=== PATIENT | female | born 1995 | race Caucasian/White ===

== ENCOUNTER → 2017-02-04 | Outpatient (CLI) | payer OTHER | END | disposition home or self-care (01) | LOC: C.LABSPEC 17:09 | PROVIDERS: ATTEND Urology | DX: N20.0 Calculus of kidney (principal) ==

== ENCOUNTER 2017-02-24 17:43 | Observation (INO) | payer OTHER ==
[2017-02-23 00:40] VITALS: BP_SYST 68; BP_SYST 84; BP_DIAS 37; BP_DIAS 53
[2017-02-23 01:15] VITALS: BP 96/51; PULSE 69
[2017-02-23 01:30] VITALS: BP 92/60
[2017-02-24] VITALS (7 sets, daily range): BP systolic 73–101; BP diastolic 36–61; PULSE 65–99; TEMP 36.7–37.7; O2SAT 97–99; Ht 165.1 cm; Wt 52.2 kg
[~2017-02-24] VITALS: Ht 165.1 cm; Wt 52.2 kg
[2017-02-24] MEDS ORDERED: ACET-1256 PO (18:04)
[2017-02-24] MEDS ORDERED: PHEN95TA10 PO (18:04)
--- NOTE | 2017-02-24 18:10 | HISTORY & PHYSICAL EXAMINATION ---
DATE OF ADMISSION: 02/24/2017 CHIEF COMPLAINT: Fever and chills, swelling right labia, and right labial pain. HISTORY OF PRESENT ILLNESS: The patient is a 22-year-old nullip is on no form of control. Last menstrual period was 02/20/2017. She says painful swelling of the right labia associated with fever and chills. This has been getting progressively worse. She was unable to sleep all the night before being seen and she states at the present time, it is getting worse by the hour. Examination revealed an infected right-sided Bartholin cyst. She is presently being scheduled for a drainage, marsupialization, and packing of a right-sided Bartholin cyst. ALLERGIES: SHE IS ALLERGIC TO AMOXICILLIN AND SYNTHETIC PENICILLIN FROM WHICH SHE GETS A RASH. PAST SURGICAL HISTORY: She has had no previous surgery. SOCIAL HISTORY: No smoking. No excessive alcohol intake. She is a [employer] student. PAST MEDICAL HISTORY: She has medical history of Crohn's disease. FAMILY HISTORY: Mom is 56 in good health. Father 55 in good health. She has 1 sister, 23 who has had an eating disorder. REVIEW OF SYSTEMS: She has had fever and chills, last 48 hours and swelling and pain of the right labia. PHYSICAL EXAMINATION: GENERAL: Well-developed, well-nourished 22-year-old white female, alert, oriented x3 and cooperative in no acute distress, appears stated age. EYES: Conjunctivae are pink, sclerae white, no evidence of jaundice. EARS: Had normal light reflex bilaterally. NOSE: Had normal mucosa. Septum is midline. There were no polyps. THROAT: No erythema or evidence of infection. Teeth are in good state of repair. HEAD: Normocephalic, normal distribution of hair. NECK: Supple. Trachea midline. Thyroid is not enlarged. There is no adenopathy appreciated. Both carotids are of good intensity. CHEST: Clear to auscultation and percussion. No wheezes, rales or rhonchi appreciated. HEART: Had regular rhythm. S1, S2 were normal. PELVIC: Revealed painful swelling of the right labia with fluctuant area. MUSCULOSKELETAL: Revealed no calf tenderness. IMPRESSIONS OF THIS CASE: Symptomatic right-sided Bartholin's infection.
[2017-02-24] MEDS ORDERED: CLINDAMYCIN IV 900 MG in DEXTROSE 5% 100ML 100 ML IV SCH (18:45)
[2017-02-24] MEDS ORDERED: MIDAZOLAM HCL 1 MG/ML 2ML VIAL ONE ×2 (18:59→19:11)
[2017-02-24] MEDS ORDERED: CLINDAMYCIN PHOS 150 MG/ML 2 ML VIAL ONE (19:23)
[2017-02-24] MEDS ORDERED: HYDROmorphone INJ 1 MG/ML SYR IV PRN (19:45)
[2017-02-24] MEDS ORDERED: NALOXONE HCL 0.4 MG/1 ML VIAL/CARP IV PRN (19:45)
[2017-02-24] MEDS ORDERED: EpHEDrine SULFATE INJ 50 MG/ML AMP IV PRN (19:45)
[2017-02-24] MEDS ORDERED: ATROPINE SULFATE 0.1 MG/ML 5ML SYR IV PRN (19:45)
[2017-02-24] MEDS ORDERED: FLUMAZENIL 0.1 MG/1 ML 10 ML VIAL IV PRN (19:45)
[2017-02-24] MEDS ORDERED: ONDANSETRON INJ 2 MG/ML 2 ML VIAL IV PRN ×2 (19:45→20:15)
--- NOTE | 2017-02-24 20:08 | [facility] Post Operative Brief Note ---
Immediate Operative Summary Operative Date Feb 24, 2017. Pre-Operative Diagnosis Right symptomatic Bartholian cyst Post-Operative Diagnosis Right symptomatic Bartholian cyst Procedure(s) Performed marsupialization with packing right bartolins cyst Surgeon Dr. Colón Surveillance Sensor Operator Surgeon(s) none Estimated Blood Loss 10 ml Findings infected right bartholin cyst Specimens Culture 1. Right Symptomatic Bartholian Cyst-For aerobic and anerobic culture per Dr. Colón Anesthesia saddle block Complication(s) None Disposition Recovery Room / PACU
[2017-02-24] MEDS ORDERED: KETOROLAC TROMETHAMINE 30 MG/ML VIAL IV. PRN (20:15)
[2017-02-24] MEDS ORDERED: IBUPROFEN 600 MG TAB PO PRN (20:15)
[2017-02-24] MEDS ORDERED: OXYCODONE/ACETAMINOPHEN 5-325 TAB PO PRN ×2 (20:15)
[2017-02-24] MEDS ORDERED: HYDROCODONE/ACETAMOPHEN 5/325MG TAB PO PRN ×4 (20:15)
--- NOTE | 2017-02-24 20:18 | Anesthesiology Progress Note ---
Anesthesia Post Op Note Date & Time Feb 24, 2017 at 20:18 Vital Signs Pain Intensity: 0 Vital Signs Past 12 Hours Date Time Temp Pulse Resp B/P (MAP) Pulse Ox O2 Delivery O2 Flow Rate FiO2 02/24/17 20:15 89 20 101/66 100 Room Air 02/24/17 20:05 88 20 102/81 100 Room Air 02/24/17 19:59 37.2 88 20 105/63 100 Room Air 02/24/17 18:05 37.7 99 18 97/61 (73) 98 Room Air Notes Mental Status: alert / awake / arousable, participated in evaluation Pt Amnestic to Procedure: Yes Nausea / Vomiting: adequately controlled Pain: adequately controlled Airway Patency, RR, SpO2: stable & adequate BP & HR: stable & adequate Hydration State: stable & adequate Neuraxial Anesthesia: was administered, sensory block is resolving Anesthetic Complications: no major complications apparent
[2017-02-24] MEDS: SODIUM CHLORIDE 0.9% 1000ML 1,000 ML IV SCH (21:35)
[2017-02-25] MEDS: SODIUM CHLORIDE 0.9% 1000ML 1,000 ML IV SCH ×2 (00:57→04:04)
[2017-02-25] MEDS ORDERED: SODIUM CHLORIDE 0.9% 500ML 500 ML IV STA ×2 (01:39→01:43)
[2017-02-25] MEDS ORDERED: NURSING VERBAL MED ORDER ONE ×3 (01:40→13:30)
[2017-02-25] MEDS: CLINDAMYCIN IV 600 MG in DEXTROSE 5% 50ML 50 ML IV SCH ×2 (04:04→11:27)
[2017-02-25 04:10] VITALS: BP 87/56; PULSE 76; TEMP 36.6; O2SAT 100
[2017-02-25] MEDS: IV FLUIDS COMPLETED PRN ×3 (04:18→12:15)
[2017-02-25 09:00] VITALS: BP 101/65; PULSE 66; TEMP 36.6; O2SAT 98
--- NOTE | 2017-02-25 09:20 | Anesthesiology Progress Note ---
Anesthesia Post Op Note Date & Time Feb 25, 2017 at 09:19 Vital Signs Pain Intensity: 0.0 Vital Signs Past 12 Hours Date Time Temp Pulse Resp B/P (MAP) Pulse Ox O2 Delivery O2 Flow Rate FiO2 02/25/17 05:05 Room Air 02/25/17 04:10 36.6 76 16 87/56 (66) 100 Room Air 02/24/17 23:40 83/53 (63) 02/24/17 23:30 36.7 65 16 73/36 (48) 99 Room Air 77/45 (56) 02/24/17 23:30 Room Air 02/24/17 22:38 37.0 75 18 89/53 (65) 98 Room Air 02/24/17 21:40 37.3 93 18 99/60 (73) 99 Room Air Notes Mental Status: alert / awake / arousable, participated in evaluation Pt Amnestic to Procedure: Yes Nausea / Vomiting: adequately controlled Pain: adequately controlled Airway Patency, RR, SpO2: stable & adequate BP & HR: stable & adequate Hydration State: stable & adequate Neuraxial Anesthesia: was administered, sensory block resolved Anesthetic Complications: no major complications apparent
--- NOTE | 2017-02-25 09:55 | Progress Note ---
Subjective Feb 25, 2017. Subjective conversation w/ patient Ambulation: ambulating normally Voiding: no voiding problems Passing Gas: Yes Diet Tolerance: Regular Diet Lochia: Small Review of Systems Constitutional: + fever Objective Vital Signs Date Time Temp Pulse Resp B/P (MAP) Pulse Ox O2 Delivery O2 Flow Rate FiO2 02/25/17 05:05 Room Air 02/25/17 04:10 36.6 76 16 87/56 (66) 100 Room Air 02/24/17 23:40 83/53 (63) 02/24/17 23:30 36.7 65 16 73/36 (48) 99 Room Air 77/45 (56) 02/24/17 23:30 Room Air 02/24/17 22:38 37.0 75 18 89/53 (65) 98 Room Air 02/24/17 21:40 37.3 93 18 99/60 (73) 99 Room Air 02/24/17 21:10 37.1 88 18 101/59 (73) 97 Room Air 02/24/17 20:38 98 Room Air 02/24/17 20:38 99 Room Air 02/24/17 20:38 37.1 88 18 101/59 (73) 97 Room Air 02/24/17 20:38 97 Room Air 02/24/17 20:25 37.1 87 18 101/59 98 Room Air 02/24/17 20:15 89 20 101/66 100 Room Air 02/24/17 20:05 88 20 102/81 100 Room Air 02/24/17 19:59 37.2 88 20 105/63 100 Room Air 02/24/17 18:05 37.7 99 18 97/61 (73) 98 Room Air Physical Exam General Appearance: WELL-APPEARING Respiratory/Chest: lungs clear Abdomen: normal bowel sounds, non tender Extremities: no pedal edema, no calf tenderness Laboratory Results Last 24 Hours Test 02/24/17 18:18 Assessment and Plan Post-Op Day#: 1 Continue Routine Care: decreased redness and swelling of right labia packing in place
--- NOTE | 2017-02-25 09:59 | Discharge Instructions ---
Discharge Instructions Date of Service Feb 25, 2017. Visit Reason for Visit: Bartholians Cyst Discharge Discharge Diagnosis / Problem: infected bartholins cyst with fever and chills Discharge Goals Goal(s): Decrease discomfort Activity Recommendations Activity Limitations: as noted below ACTIVITY RECOMMENDATIONS: * Avoid tampons, douching, hot tubs, pools, and intercourse until bleeding has stopped. * May shower as usual. * No strenuous activity for 24-48 hours. After 24-48 hours, you may do anything you feel like doing (driving and sports are okay). SPECIAL CARE INSTRUCTIONS: Special Diet: * Mild nausea may occur in the immediate post-operative period. * Take clear liquids such as tea, cola or bouillon until all nausea has subsided; you may then resume your normal diet. Special Care: * Light bleeding and vaginal spotting can last from a few days to 3-4 weeks. Call your doctor if bleeding becomes heavier than the heaviest part of your period. * Check your temperature twice a day for one week. If it goes above 100.4 degrees Fahrenheit (38.0 Celsius), notify your doctor. * Call your doctor's office for an appointment for 6 weeks after your surgery. FOLLOW-UP VISIT: Call your doctor's office for an appointment for 6 weeks after your surgery. Anesthesia . Post Anesthesia Instructions: If you have had General Anesthesia or IV Sedation: * Do not drive today. * Resume driving when surgeon permits. * Do not make important decisions or sign legal documents today. * Call surgeon for: 1. Temperature elevations greater than 101 degrees F. 2. Uncontrollable pain. 3. Excessive bleeding. 4. Persistent nausea and vomiting. 5. Medication intolerance (nausea, vomiting or rash). * For nausea and vomiting use only clear liquids such as: tea, soda, bouillon until nausea subsides, then gradually increase diet as tolerated. * If you have any concerns or questions, call your surgeon's office. If physician is unavailable and it is an emergency, call 911 or go to the nearest emergency room. . Diet Recommendations Recommended Home Diet: resume previous diet Procedures Procedures Performed: Right Marsupialization Bartholin Cyst with Packing and drainage Pending Studies Studies pending at discharge: no Medical Emergencies . Who to Call and When: Medical Emergencies: If at any time you feel your situation is an emergency, please call 911 immediately. . Non-Emergent Contact Non-Emergency issues call your: [employer] Call Non-Emergent contact if: temperature is above 100.5 . . "Provider Documentation" section prepared by Barney Colón. .
--- NOTE | 2017-02-25 10:44 | DISCHARGE SUMMARY ---
Mrs. Ann is a 22-year-old nulliparous. She was seen in our office with a history of fevers, sweats, and chills associated with nausea and vomiting. She had been unable to sleep the night before due to right labial swelling and pain. She had difficulty walking or even sitting in a chair and she stated that the pain was getting worse by the hour. Initial exam revealed swelling, fluctuance, and tenderness of the right labia, and she was diagnosed with an infected Bartholin cyst which was also associated with secondary signs of infection including severe pain, fevers and chills, nausea and vomiting. Therefore, the surgery was considered to be urgent. She was sent from the office to the hospital, where under a saddle block, we drained left Bartholin cyst, evacuated the cyst, cultured the cavity, then cleaned the cavity with peroxide, marsupialized the opening with interrupted sutures of 3-0 chromic and then used a whole bottle of quarter-inch iodoform packing to pack off the cavity. She also received 600 mg IV of Cleocin prior and during surgery, and then she received 600 every 8 hours for 2 doses after surgery receiving a final dose at noon the day that she left. At the time of discharge, she was afebrile. Her blood pressure was stable. Her discomfort had decreased and inspection of the labia on the day of discharge revealed decreased redness. She was also discharged with pain medicines, which consisted of Percocet and Motrin for pain control and she was also placed on Cipro 500 mg twice a day p.o. at home and she was discharged with her mom planning to stay a day or two with her to get things settled.
[2017-02-25 10:48] VITALS: BP 101/65; PULSE 66; TEMP 36.6; O2SAT 98
[2017-02-25 12:45] VITALS: BP 94/58; PULSE 60; TEMP 36.5; O2SAT 99
[2017-02-25] MEDS ORDERED: ACETAMINOPHEN 325 MG TAB PO PRN (13:45)
--- NOTE | 2017-03-05 10:29 | OPERATIVE REPORT ---
DATE OF OPERATION: 02/24/2017 PREOPERATIVE DIAGNOSIS: Symptomatic Bartholin cyst abscess, right side. POSTOPERATIVE DIAGNOSIS: Same. SURGEON: Dr. Colón. ESTIMATED BLOOD LOSS: 10 mL ANESTHESIA: General. OPERATIVE FINDINGS AND PROCEDURE: The patient was brought to the OR table, correctly identified by armband and conversation. Saddle block was used for anesthesia. Once the saddle block had taken effect, perineum and vagina were painted with Betadine paint, draped in usual sterile fashion. The patient had a large bulging mass of the right labia majora which was also red and inflamed. Palpation under saddle block revealed a large fluctuant area. I made a small stab wound at about 7 o'clock on the vaginal opening, just outside the hymenal ring. Once the stab wound was made, a lot of pustular fluid came gushing out. We then evacuated the abscess cavity by pressing in different areas and more additional infectious material came out. When we felt we had the abscess cavity evacuated, I used several Q-tips with peroxide to swab the cavity and then I packed the cavity with quarter-inch iodoform packing. I eventually used an entire bottle of it. A lot of the cavity was under the labia majora on the right side. Some of the cavity had gone down into the perineal area and there was a large cavity, a paravaginal cavity at about 8 o'clock in the vaginal opening that went back almost a third [address] the way to the cervix. After all these areas had been packed, I then left a small piece of the quarter-inch iodoform packing outside of the area. I also sutured the edges of the stab wound with about 8 interrupted 3-0 chromic sutures to keep the opening open. After evacuating the infectious material, I also swabbed the cedillo of the abscess with a culture and sent it for evaluation. The patient also received 600 mg of clindamycin just prior to the surgery. I attest to the content of the Intraoperative Record and any orders documented therein. Any exception s are noted below.
== END 2017-02-25 11:45 | disposition home or self-care (01) ==
LOC: C.OR 17:43 → C.OBG 20:12 → ENRESERV 20:20
PROVIDERS: ADMIT Obstetrics & Gynecology; ATTEND Obstetrics & Gynecology
DX: N75.0 Cyst of Bartholin's gland (principal); N75.1 Abscess of Bartholin's gland; K50.90 Crohn's disease, unspecified, without complications; F41.9 Anxiety disorder, unspecified; J45.909 Unspecified asthma, uncomplicated; Z87.442 Personal history of urinary calculi

== ENCOUNTER → 2017-06-01 | Outpatient (CLI) | payer OTHER ==
[~2017-06-01] MED LIST: ACET-1256 PO; PHEN95TA10 PO
[2017-06-01 17:15] LABS: BASO % 1.1 %; BASO ABS # 0.04 K/uL (0-0.2); EOS % 2.3 %; EOS ABS # 0.08 K/uL (0-0.5); HEMATOCRIT 38.9 % (37-47); HEMOGLOBIN 13.2 g/dL (12.0-16.0); IG# 0.01 K/uL (0.00-0.02); LYMPH % 43.9 %; LYMPH ABS # 1.54 K/uL (1.2-3.4); MEAN CELL VOLUME 92.2 fL (80-100); MEAN CORPUSCULAR HEMOGLOBIN 31.3 pg (25-34); MEAN CORPUSCULAR HGB CONC 33.9 g/dl (32-36); MEAN PLATELET VOLUME 11.3 fL (7.4-10.4); MONO ABS # 0.42 K/uL (0.11-0.59); NEUT % 40.4 %; NEUT ABS # 1.42 K/uL (1.4-6.5); PLATELET COUNT 152 K/uL (130-400); RED CELL DISTRIBUTION WIDTH CV 13.5 % (11.5-14.5); RED CELL DISTRIBUTION WIDTH SD 44.5 fL (36.4-46.3); WHITE BLOOD COUNT 3.51 K/uL (4.8-10.8)
[2017-06-01 17:45] LABS: ALBUMIN 3.5 gm/dl (3.4-5.0); ALT/SGPT 22 U/L (12-78); BLOOD UREA NITROGEN 12 mg/dl (7-18); CALCIUM 8.4 mg/dl (8.5-10.1); CARBON DIOXIDE 28 mmol/L (21-32); CREATININE 0.62 mg/dl (0.60-1.20); GLUCOSE 75 mg/dl (70-99); LIPASE 193 U/L (73-393); POTASSIUM 3.6 mmol/L (3.5-5.1); SODIUM 136 mmol/L (136-145)
[2017-06-01 17:48] LABS: ALKALINE PHOSPHATASE 47 U/L (45-117); AST/SGOT 21 U/L (15-37); TOTAL PROTEIN 6.5 gm/dl (6.4-8.2)
== END | disposition home or self-care (01) ==
LOC: C.LAB 16:43
PROVIDERS: ATTEND Family Medicine
DX: K50.80 Crohn's disease of both small and large intestine without complications (principal); K62.5 Hemorrhage of anus and rectum; R10.30 Lower abdominal pain, unspecified

== ENCOUNTER → 2017-06-01 | Outpatient (CLI) | payer OTHER ==
[~2017-06-01] MED LIST changes: +OPTIRAY 320 IV PRN
--- NOTE | 2017-06-01 16:54 | DIAGNOSTIC IMAGING REPORT ---
ADDENDUM Addendum: There is mild asymmetry in the right perianal soft tissues. Area of asymmetry measures 17 mm. This could represent a small inflammatory focus. The attending physician called in regards to the prior report. At the time of interpretation, I was unaware that this patient has a clinical diagnosis of Crohn's disease. The above-mentioned findings are all consistent with the clinical diagnosis of Crohn's. Electronically signed by: Julien Munson M.D. 06/01/2017 6:46 PM Dictated Date/Time: 06/01/2017 6:[address] ABD/PELVIS IV AND ORAL CONT CLINICAL HISTORY: K50.80,K62.5,R10.30 ABDOMINAL PAIN, BLOODY STOOLS. COMPARISON STUDY: None. TECHNIQUE: Following the IV administration of 116 mL of Optiray-320, CT scan of the abdomen and pelvis was performed from the lung bases to the proximal femurs. Images are reviewed in the axial, sagittal, and coronal planes. IV contrast was administered without complication. A dose lowering technique was utilized adhering to the principles of ALARA. CT DOSE: 266.45 mGy.cm FINDINGS: Lower chest: The heart is normal in size and configuration, without pericardial effusion. The lung bases and pleural spaces are clear. Liver: The contrast-enhanced liver is normal in size, contour, and attenuation. There is no intrahepatic biliary ductal dilatation. The hepatic veins and portal veins are patent. Gallbladder: Unremarkable. Spleen: Mildly enlarged measuring 13 cm Pancreas: A 6 mm cystic structure in the region of pancreatic tail likely represents an adjacent unopacified bowel loop Adrenal glands: Unremarkable. Kidneys: There is a nonobstructing 2.5 mm right renal calculus. No solid renal masses are visualized. There is no hydronephrosis Bowel: There are no transition zones indicate bowel obstruction. There is a moderate amount stool within the left colon. There is no evidence of acute diverticulitis. There is an unopacified tubular structure in the pericecal region. It is difficult to directly connect this with the cecum but this could represent the appendix. If so it is mildly dilated measuring 8 mm and does not fill with contrast. There are no definite adjacent inflammatory changes. There are multiple mildly thickened mildly dilated distal ileal small bowel loops. The findings are consistent with enteritis, infectious versus inflammatory Peritoneum: There is no intraperitoneal free air or abdominal ascites. Vasculature: The abdominal aorta is normal in course and caliber. Adenopathy: None. Pelvic viscera: There is a 38 mm structure within the left adnexal region containing a calcification. While likely ovarian one cannot exclude a loculated pelvic fluid collection containing a calcification. One might consider a pelvic ultrasound, to help confirm this represents the ovary, and not an abscess surrounding appendicolith. Skeletal structures: No destructive osseous lesions are seen. IMPRESSION: 1. Mild splenomegaly 2. No evidence for high-grade bowel obstruction no evidence of free air 3. Mildly dilated distal ileal bowel loops demonstrating areas of bowel wall thickening. The findings are most likely secondary to inflammatory bowel disease or infectious enteritis. Clinical correlation and follow-up is recommended 4. Thickened appendix versus unopacified small bowel loop. No definite adjacent inflammatory changes 5. 38 mm structure within the left adnexa containing calcification. While likely ovarian, one cannot exclude a loculated pelvic fluid collection containing a calcification Electronically signed by: Julien Munson M.D. 06/01/2017 4:53 PM Dictated Date/Time: 06/01/2017 4:38 PM
== END | disposition home or self-care (01) ==
LOC: C.CTS 14:09
PROVIDERS: ATTEND Family Medicine
DX: K50.80 Crohn's disease of both small and large intestine without complications (principal); K62.5 Hemorrhage of anus and rectum; R10.30 Lower abdominal pain, unspecified; R16.1 Splenomegaly, not elsewhere classified

== ENCOUNTER → 2017-06-04 | Outpatient (CLI) | payer OTHER ==
[~2017-06-04] MED LIST changes: -OPTIRAY 320 IV PRN
[2017-06-06 09:31] LABS: QUANTIF MITOGEN-NIL >10.00 IU/ML; QUANTIFERON NEGATIVE (NEGATIVE); QUANTIFERON NIL 0.13 IU/ML
== END | disposition home or self-care (01) ==
LOC: C.LAB 10:28
PROVIDERS: ATTEND Pediatrics Pediatric Infectious Diseases
DX: T74.21XA Adult sexual abuse, confirmed, initial encounter (principal); Y07.9 Unspecified perpetrator of maltreatment and neglect

== ENCOUNTER → 2017-06-04 | Outpatient (CLI) | payer OTHER | END | disposition home or self-care (01) | LOC: C.LABSPEC 11:27 | PROVIDERS: ATTEND Internal Medicine Gastroenterology | DX: K50.90 Crohn's disease, unspecified, without complications (principal); R19.7 Diarrhea, unspecified ==